=== PATIENT | female | born 1960 | race Caucasian/White ===

== ENCOUNTER → 2016-10-15 | Day surgery (SDC) | payer BC ==
[~2016-10-15] MED LIST: APREPITANT 40 MG CAP ONE; BUPIVACAINE/EPINEPHRINE 0.5% 50 ML VIAL ONE; LACTATED RINGER'S 1000 ML INJ 1,000 ML ONE; LIDOCAINE 1%/EPINEPHrine 1:100,000 SOLN 50 ML VIAL ONE; MIDAZOLAM HCL 2 MG/2 ML VIAL ONE; ONDANSETRON HCL 4 MG/2 ML VIAL IV PUSH ONE; PROPOFOL 200 MG/20 ML AMP IV ONE; ceFAZolin INJ 1,000 MG VIAL ONE
--- NOTE | 2016-10-15 10:32 | TN ---
cc: JOSE RAMON ASCENCIO 0. JONN JAMES M.D. DATE OF SURGERY: 10/15/2016 PREOPERATIVE DIAGNOSES 1. Malignant melanoma in situ, right posterior ankle. 2. Skin lesion, left chest wall. POSTOPERATIVE DIAGNOSIS 1. Malignant melanoma in situ, right posterior ankle. 2. Skin lesion, left chest wall. PROCEDURE 1. Excision of malignant melanoma in situ, right lower posterior ankle with a 7 x 5 cm elliptical incision, double-layer closure. 2. Excision of pedunculated skin lesion, left chest wall. ANESTHESIA General. SURGEON Dr. Farah INDICATION This is a pleasant lady who was found to have a malignant melanoma in situ site of the right posterior ankle. Plans were made for wide excision. She also has a pedunculated skin lesion on the left chest wall that is quite bothersome to her, measures a little bit more than 5 mm. DETAILS OF PROCEDURE The patient was taken to the operating room and placed in the supine position. After anesthesia she is placed in the left lateral decubitus position and her left ankle is prepped with Betadine. We make an elliptical incision measuring 7 x 5 cm, oriented in a vertical fashion just along the posterior ankle over the Achilles tendon. We dissect circumferentially around the area to get a little bit more than a centimeter margin circumferentially. A stitch is placed in the 12 o'clock position for orientation. We then closed the deep layer with 3-0 Vicryl and the skin is closed with 3-0 nylon. This is all interrupted. Sterile bandage is applied. We then direct our attention to the left chest wall. The area is prepped with Betadine. An elliptical incision is made about 1 cm and the lesion is completely removed to the deep subcutaneous tissue. A 4-0 Vicryl subcuticular stitch is then place to close it. Steri-Strips applied. Sterile bandage applied. The patient tolerated the procedure well and had no immediate post-op complications. Jonn Farah MD JDB/BT /10:11 AM /10:23 AM
== END | disposition home or self-care (01) ==
LOC: ESDC 07:37
PROVIDERS: ATTEND Surgery
DX: C43.71 Malignant melanoma of right lower limb, including hip (principal); D18.01 Hemangioma of skin and subcutaneous tissue
CPT/HCPCS: 00400; 11606; 21555; 88305; J0690; J2250; J2405; J3010; J7120; J8501